=== PATIENT | female | born 1995 | race Caucasian/White ===

== ENCOUNTER 2016-08-16 15:16 | Emergency (ER) | payer OTHER, BC ==
[2016-08-16 15:29] VITALS: PULSE 81; RESP 16
--- NOTE | 2016-08-16 16:34 | EDPHY ---
H & P Time Seen by Provider: 08/16/16 15:35 HPI/ROS: CHIEF COMPLAINT: cyst on tailbone HISTORY OF PRESENT ILLNESS: 21-year-old female presents emergency department complaining of a cyst on her tailbone that has ruptured yesterday. Patient has a history of a pilonidal cyst. She had this surgically removed 6 years ago in [place]. Patient states 3 days ago she noticed increased tenderness and swelling in this same area, last night it started draining. She denies fevers or chills, no numbness or tingling in her legs, no other complaints. Smoking Status: Never smoked Physical Exam: GEN: Awake, alert, oriented, no acute distress RESP: nl resp effort MSK: Normal appearing SKIN: Patient with 2 cm x 2 cm area of erythema, draining purulent material from gluteal cleft, no surrounding erythema or induration Constitutional: Initial Vital Signs Temperature (C) 36.8 C 08/16/16 15:27 Heart Rate 81 08/16/16 15:27 Respiratory Rate 16 08/16/16 15:27 Blood Pressure 138/81 H 08/16/16 15:27 O2 Sat (%) 95 08/16/16 15:27 O2 Delivery Mode Room Air Allergies/Adverse Reactions: No Known Allergies Allergy (Unverified 12/19/15 11:48) Home Medications: Medication Instructions Recorded Ibuprofen [Motrin (*)] 800 mg PO Q6-8PRN #30 tab 12/19/15 Lexapro 12/19/15 Propranolol HCl 12/19/15 Wellbutrin Sr 08/16/16 MDM/Departure - MDM Procedures: Procedure: Incision and Drainage abscess. The patient's abscess was located on the gluteal cleft. Risks, benefits, alternatives discussed with the patient and consent obtained. The area was prepped and draped in sterile fashion. The patient received local anesthesia with 1% lidocaine with epinephrine. The abscess was incised with a #11 blade and purulent drainage was expressed. The patient tolerated the procedure well. The procedure was performed by myself. - Depart Disposition: Home, Routine, Self-Care Clinical Impression: Pilonidal cyst with abscess Condition: Good Instructions: Pilonidal Cyst (ED) Additional Instructions: Warm soaks 5 times a day for 10-15 minutes. You had been referred to a surgeon in [place] for symptoms that return or follow-up with your surgeon back home in [place]. Return to the emergency department for worsening symptoms, fevers, new symptoms or concerns. Referrals: Valerio Bourne MD [Medical Doctor] - As per Instructions (General surgeon on- call)
[2016-08-16 16:44] VITALS: BP 122/76; TEMP 97.7; O2SAT 98
== END 2016-08-16 16:44 | disposition home or self-care (01) ==
PROC: 0H98XZZ Drainage of Buttock Skin, External Approach (ICD-10-PCS; principal; 2016-08-16)
DX: L05.01 Pilonidal cyst with abscess (principal)